=== PATIENT | male | born 1965 | race Caucasian/White ===

== ENCOUNTER 2019-09-03 09:54 | Emergency (ER) | payer OTHER ==
[~2019-09-03] VITALS: Ht 177.8 cm; Wt 88.5 kg
[2019-09-03] MEDS ORDERED: LITE COAT ASPI325 MG PO (10:34)
[2019-09-03] MEDS ORDERED: LOPRESSOR50 MG PO (10:34)
[2019-09-03] MEDS ORDERED: METHOCARBAMOL500 M2 PO (10:35)
[2019-09-03] MEDS ORDERED: OMEPRAZOLE40 MG PO (10:36)
[2019-09-03] MEDS ORDERED: VISTARIL 25 MG25 M1 PO (10:36)
[2019-09-03] MEDS ORDERED: IBUPROFEN 800800 M1 PO (12:54)
[2019-09-03] MEDS ORDERED: PREDNISONE50 MG PO (12:54)
[2019-09-03] MEDS ORDERED: FLEXERIL PO (12:54)
[2019-09-03] MEDS ORDERED: NORCO 5-325 TA1 EAC1 PO (12:54)
[2019-09-03 13:06] VITALS: BP 125/70
== END 2019-09-03 13:07 | disposition home or self-care (01) ==
LOC: M.ERS 09:54
DX: M54.42 Lumbago with sciatica, left side (principal); J44.9 Chronic obstructive pulmonary disease, unspecified; I48.91 Unspecified atrial fibrillation; Z88.1 Allergy status to other antibiotic agents; Z88.0 Allergy status to penicillin; Z79.82 Long term (current) use of aspirin; Z79.899 Other long term (current) drug therapy; W11.XXXA Fall on and from ladder, initial encounter; Y93.89 Activity, other specified; Y92.89 Other specified places as the place of occurrence of the external cause; Y99.9 Unspecified external cause status

== ENCOUNTER 2019-10-20 13:25 | Emergency (ER) | payer OTHER ==
[~2019-10-20] VITALS: Ht 175.3 cm; Wt 90.7 kg
[~2019-10-20 13:25] MED LIST: FLEXERIL PO; IBUPROFEN 800800 M1 PO; LITE COAT ASPI325 MG PO; LOPRESSOR50 MG PO; METHOCARBAMOL500 M2 PO; NORCO 5-325 TA1 EAC1 PO; OMEPRAZOLE40 MG PO; PREDNISONE50 MG PO; VISTARIL 25 MG25 M1 PO
[2019-10-20 13:55] LABS: ABSOLUTE EOSINOPHILS 0.4 thou/uL (0.0-0.7); ABSOLUTE LYMPHOCYTES 2.8 thou/uL (0.8-5.3); ABSOLUTE MONOCYTES 0.6 thou/uL (0.0-1.2); ABSOLUTE NEUTROPHILS 4.6 thou/uL (1.6-8.1); BASOPHILS 0.3 %; EOSINOPHILS 4.5 %; HEMATOCRIT 45.1 % (42.0-52.0); HEMOGLOBIN 15.9 gm/dL (14.0-18.0); LYMPHOCYTES 33.3 %; MCH 32.4 pg (26.0-34.0); MCHC 35.2 g/dL (28.0-37.0); MCV 92.1 fL (80.0-100.0); MONOCYTES 7.5 %; MPV 7.1 fl. (7.2-11.1); NUCLEATED RBCS 0 /100WBC; PLATELET COUNT* 334 thou/uL (150-400); POLYS 54.4 %; RDW-CV 14.2 % (10.5-14.5); WBC 8.4 thou/uL (4.0-11.0)
[2019-10-20 14:02] LABS: PROTIME 10.7 Seconds (9.20-11.50)
[2019-10-20 14:06] LABS: CALCIUM 7.9 mg/dL (8.5-10.1); CREATININE 1.2 mg/dL (0.6-1.3); POTASSIUM 4.1 mmol/L (3.5-5.1)
[2019-10-20 14:17] LABS: ALBUMIN 3.3 g/dL (3.4-5.0); TOTAL BILIRUBIN 0.7 mg/dL (<0.1-1.0); TOTAL PROTEIN 6.7 g/dL (6.4-8.2)
[2019-10-20] MEDS ORDERED: NORCO 5-325 TA1 EAC2 PO (16:07)
[2019-10-20 16:34] VITALS: BP 108/76
--- NOTE | 2019-10-22 09:50 | EKG ---
[place] [address] ELECTROCARDIOGRAM REPORT Name: JOSEPH ELLISON Room: [facility]#: [id number] Admission: 10/20/19 Attend Phys: Discharge: 10/20/19 Date of : 65 Date of Service: 10/20/19 1329 Report #: [id number] THIS REPORT FOR: //name// [facility] ED Test Date: 2019-10-20 Test Time: 13:29:05 Pat Name: JOSEPH ELLISON Department: Room: Gender: [employer] Instructor: APL : 1965 Requested By: Blaine Lemon Order Number: [id number] MD: Clark Yu Measurements Intervals [place] Rate: 77 P: 67 W[place]: 122 QRS: 54 QRSD: 86 T: 25 QT: 365 QTc: 414 Interpretive Statements Sinus rhythm Probable left atrial enlargement Borderline repolarization abnormality Baseline wander in lead(s) II,III,aVF,V5 No previous ECG available for comparison Electronically Signed On 10-22-2019 9:50:10 CDT by Clark Yu [email or web address] <ELECTRONICALLY SIGNED> By: Clark Yu MD, [facility] 10/22/19 0950 1329 1329 Clark Yu MD, [facility] /EPI
== END 2019-10-20 16:34 | disposition home or self-care (01) ==
LOC: M.ERS 13:25
PROVIDERS: Emergency Medicine Emergency Medical Services
DX: R07.89 Other chest pain (principal); I48.91 Unspecified atrial fibrillation; J44.9 Chronic obstructive pulmonary disease, unspecified; Z88.2 Allergy status to sulfonamides; Z88.0 Allergy status to penicillin; Z88.1 Allergy status to other antibiotic agents